=== PATIENT | male | born 1975 | race Two or more races ===

== ENCOUNTER 2019-04-13 13:49 | Emergency (ER) | payer SELFPAY ==
[~2019-04-13] VITALS: Ht 177.8 cm; Wt 80.3 kg
--- NOTE | 2019-04-13 13:54 | NUR ---
PT CALLED TO TRIAGE, PT NOT IN WAITING ROOM
[2019-04-13 13:58] VITALS: BP 150/99
[2019-04-13] MEDS ORDERED: CEFTRIAXONE 500 MG VIAL IM ONE (14:30)
[2019-04-13] MEDS ORDERED: AZITHROMYCIN 250 MG TABLET PO ONE (14:30)
== END 2019-04-13 14:43 | disposition home or self-care (01) ==
LOC: ER 13:49
DX: R36.9 Urethral discharge, unspecified (principal)
CPT/HCPCS: J0696

== ENCOUNTER 2019-07-07 09:29 | Emergency (ER) | payer SELFPAY ==
[~2019-07-07] VITALS: Ht 177.8 cm; Wt 81.6 kg
[2019-07-07 09:34] VITALS: BP 127/80
--- NOTE | 2019-07-07 09:45 | NUR ---
SEEN AND EXAMINED BY .
[2019-07-07] MEDS ORDERED: LIDOCAINE 1%-EPI 1:100,000 20 ML VIAL ONE (09:50)
[2019-07-07] MEDS ORDERED: SULFAMETH/TRIMETH 800/160 MG 1 UDTAB TABLET ONE (09:50)
[2019-07-07] MEDS ORDERED: CEPHALEXIN MONOHYDRATE 500 MG CAPSULE PO ONE ×2 (09:50→10:00)
[2019-07-07] MEDS ORDERED: TDAP [DIPH/PERTUSSIS/TET] 0.5 ML VIAL IM ONE ×2 (09:51→10:00)
--- NOTE | 2019-07-07 09:56 | NUR ---
I AND D SET UP AT BEDSIDE.
[2019-07-07] MEDS ORDERED: LIDOCAINE 1%-EPI 1:100,000 20 ML VIAL TP ONE (10:00)
[2019-07-07] MEDS ORDERED: SULFAMETH/TRIMETH 800/160 MG 1 UDTAB TABLET PO ONE (10:00)
--- NOTE | 2019-07-07 10:47 | NUR ---
Patient discharged to home in stable condition. Written and verbal after care instructions given. Patient verbalizes understanding of instruction.
== END 2019-07-07 10:49 | disposition home or self-care (01) ==
LOC: ER 09:31
DX: L02.415 Cutaneous abscess of right lower limb (principal)
CPT/HCPCS: 10060; 90471; 90715; 99283; A6403; A6407; J3490

== ENCOUNTER 2020-03-10 23:40 | Emergency (ER) | payer SELFPAY ==
[~2020-03-10] VITALS: Ht 177.8 cm; Wt 86.2 kg
--- NOTE | 2020-03-10 23:48 | NUR ---
PT AAOX4. AMBULATORY WITH STEADY GAIT. BIBSELF C/O FALLING ON R HAND YESTERDAY. UP ASSESMENT PT R HAND SWOLLEN. AT BEDSIDE FOR EVAL.
[2020-03-11] MEDS ORDERED: KETOROLAC TROMETHAMINE INJ 60 MG/2 ML VIAL IM ONE
[2020-03-11] MEDS ORDERED: KETOROLAC TROMETHAMINE INJ 30 MG/ML VIAL ONE (00:01)
--- NOTE | 2020-03-11 00:28 | NUR ---
Patient is resting comfortably in bed. Easily aroused. VSS. Awaiting Xray.
--- NOTE | 2020-03-11 00:43 | NUR ---
EMT AT BEDSIDE FOR SPLINT.
--- NOTE | 2020-03-11 01:28 | NUR ---
Patient discharged to home in stable condition. Written and verbal after care instructions given. Patient verbalizes understanding of instruction. Pt ambulated with steady gait.
[2020-03-11 01:30] VITALS: BP 138/86
== END 2020-03-11 01:10 | disposition home or self-care (01) ==
LOC: ER 23:40
DX: S62.314A Displaced fracture of base of fourth metacarpal bone, right hand, initial encounter for closed fracture (principal); W18.39XA Other fall on same level, initial encounter; Y93.89 Activity, other specified; Y92.89 Other specified places as the place of occurrence of the external cause; Y99.8 Other external cause status
CPT/HCPCS: 29125; 73110; 73130; 96374; 99284; J1885